=== PATIENT | male | born 1965 | race African-American/Black ===

== ENCOUNTER 2019-01-21 07:35 | Inpatient (IN) | payer OTHER ==
[2019-01-21 08:53] LABS: ADD MAN DIFF? NO
[2019-01-21 08:56] LABS: EOSINOPHILS # 0.2 10^3/ul (0.0-0.5); HEMATOCRIT 41.4 % (42.0-52.0); HEMOGLOBIN 13.6 g/dl (14.0-18.0); LYMPHOCYTES # 1.3 10^3/ul (0.8-2.9); LYMPHOCYTES % 31.3 % (15.0-51.0); MEAN CORPUSCULAR HEMOGLOBIN 26.1 pg (29.0-33.0); MEAN CORPUSCULAR HGB CONC 32.9 g/dl (32.0-37.0); MEAN CORPUSCULAR VOLUME 79.5 fl (82.0-101.0); MEAN PLATELET VOLUME 10.5 fl (7.4-10.4); MONOCYTE # 0.4 10^3/ul (0.3-0.9); MONOCYTES % 10.7 % (0.0-11.0); NEUTROPHIL # 2.1 10^3/ul (1.6-7.5); NEUTROPHILS % 52.8 % (39.0-77.0); PLATELET COUNT 198 10^3/UL (140-415); RED BLOOD COUNT 5.21 10^6/ul (4.70-6.10); RED CELL DISTRIBUTION WIDTH 13.6 % (11.5-14.5)
[2019-01-21 09:20] LABS: PROTIME 12.3 Sec (11.9-14.9)
[2019-01-21 09:21] LABS: PARTIAL THROMBOPLASTIN TIME 32.2 Sec (23.0-35.0)
[2019-01-21 09:37] LABS: ALANINE AMINOTRANSFERASE 41 IU/L (13-69); ALBUMIN 4.4 g/dl (3.3-4.9); ALBUMIN/GLOBULIN RATIO 1.41; ALKALINE PHOSPHATASE 58 IU/L (42-121); ANION GAP 10 (5-13); ASPARTATE AMINO TRANSFERASE 43 IU/L (15-46); BILIRUBIN,INDIRECT 0.8 mg/dl (0-1.1); BILIRUBIN,TOTAL 0.8 mg/dl (0.2-1.3); BLOOD UREA NITROGEN 12 mg/dl (7-20); CALCIUM 9.8 mg/dl (8.4-10.2); CARBON DIOXIDE 30 mmol/L (21-31); CHLORIDE 104 mmol/L (97-110); CREATININE 1.07 mg/dl (0.61-1.24); Estimated GFR > 60 mL/min (>60); GLUCOSE 88 mg/dl (70-220); POTASSIUM 4.2 mmol/L (3.5-5.1); SODIUM 144 mmol/L (135-144); TOTAL PROTEIN 7.5 g/dl (6.1-8.1)
[2019-01-21] MEDS ORDERED: ONDANSETRON 4 MG INJ IV (12:00)
[2019-01-21] MEDS ORDERED: ACETAMINOPHEN 325 MG TAB PO ×2 (12:00→16:00)
[2019-01-21] MEDS ORDERED: HYDROCODONE/APAP (5/325) TAB PO (16:00)
[2019-01-21] MEDS ORDERED: IBUPROFEN 600 MG TAB PO (16:00)
[2019-01-21] MEDS: METHOCARBAMOL 500 MG TAB PO (17:45)
[2019-01-21 18:55] LABS: TROPONIN-I < 0.012 ng/ml (0.000-0.120)
[2019-01-21] MEDS: GABAPENTIN 100 MG CAP PO (21:20)
[2019-01-22] MEDS: METHOCARBAMOL 500 MG TAB PO ×5 (00:38→23:59)
[2019-01-22 01:09] LABS: TROPONIN-I < 0.012 ng/ml (0.000-0.120)
[2019-01-22 06:06] LABS: ADD MAN DIFF? NO
[2019-01-22] MEDS: PANTOPRAZOLE (EC) 40 MG TAB PO (06:09)
[2019-01-22 06:12] LABS: WHITE BLOOD COUNT 4.1 10^3/ul (4.8-10.8)
[2019-01-22 06:12] LABS: EOSINOPHILS # 0.2 10^3/ul (0.0-0.5); EOSINOPHILS % 4.4 % (0.0-7.0); HEMATOCRIT 38.8 % (42.0-52.0); HEMOGLOBIN 13.2 g/dl (14.0-18.0); LYMPHOCYTES # 1.4 10^3/ul (0.8-2.9); LYMPHOCYTES % 35.2 % (15.0-51.0); MEAN CORPUSCULAR HEMOGLOBIN 26.2 pg (29.0-33.0); MONOCYTE # 0.5 10^3/ul (0.3-0.9); MONOCYTES % 12.1 % (0.0-11.0); NEUTROPHIL # 1.9 10^3/ul (1.6-7.5); NEUTROPHILS % 47.1 % (39.0-77.0); PLATELET COUNT 194 10^3/UL (140-415); RED BLOOD COUNT 5.04 10^6/ul (4.70-6.10); RED CELL DISTRIBUTION WIDTH 13.6 % (11.5-14.5)
[2019-01-22 06:48] LABS: ANION GAP 8 (5-13); BLOOD UREA NITROGEN 15 mg/dl (7-20); CALCIUM 9.5 mg/dl (8.4-10.2); CARBON DIOXIDE 28 mmol/L (21-31); CHLORIDE 105 mmol/L (97-110); CREATININE 1.05 mg/dl (0.61-1.24); Estimated GFR > 60 mL/min (>60); GLUCOSE 86 mg/dl (70-220); POTASSIUM 4.2 mmol/L (3.5-5.1); SODIUM 141 mmol/L (135-144)
[2019-01-22 07:06] LABS: CHOL/HDL RATIO 3.4 RATIO; HDL CHOLESTEROL 55 mg/dl (28-71); LDL CHOLESTEROL,CALCULATED 121 mg/dl; TRIGLYCERIDES 73 mg/dl (0-149)
[2019-01-22 07:06] LABS: CHOLESTEROL 191 mg/dl (100-200)
[2019-01-22] MEDS: DOCUSATE SODIUM 100 MG CAP PO ×2 (08:09→20:13)
[2019-01-22] MEDS: GABAPENTIN 100 MG CAP PO ×2 (08:09→20:20)
[2019-01-23 06:05] LABS: ADD MAN DIFF? NO
[2019-01-23] MEDS: PANTOPRAZOLE (EC) 40 MG TAB PO (06:05)
[2019-01-23] MEDS: METHOCARBAMOL 500 MG TAB PO ×3 (06:05→18:16)
[2019-01-23 06:10] LABS: BASOPHILS % 0.8 % (0.0-2.0); EOSINOPHILS # 0.2 10^3/ul (0.0-0.5); EOSINOPHILS % 4.5 % (0.0-7.0); HEMATOCRIT 41.9 % (42.0-52.0); HEMOGLOBIN 14.1 g/dl (14.0-18.0); LYMPHOCYTES # 1.3 10^3/ul (0.8-2.9); LYMPHOCYTES % 32.8 % (15.0-51.0); MEAN CORPUSCULAR HEMOGLOBIN 26.1 pg (29.0-33.0); MEAN CORPUSCULAR HGB CONC 33.7 g/dl (32.0-37.0); MEAN CORPUSCULAR VOLUME 77.4 fl (82.0-101.0); MEAN PLATELET VOLUME 10.9 fl (7.4-10.4); MONOCYTE # 0.4 10^3/ul (0.3-0.9); MONOCYTES % 11.3 % (0.0-11.0); NEUTROPHIL # 1.9 10^3/ul (1.6-7.5); NEUTROPHILS % 50.1 % (39.0-77.0); PLATELET COUNT 196 10^3/UL (140-415); RED BLOOD COUNT 5.41 10^6/ul (4.70-6.10); RED CELL DISTRIBUTION WIDTH 13.3 % (11.5-14.5)
[2019-01-23 06:10] LABS: WHITE BLOOD COUNT 3.8 10^3/ul (4.8-10.8)
[2019-01-23 06:39] LABS: ANION GAP 9 (5-13); BLOOD UREA NITROGEN 15 mg/dl (7-20); CARBON DIOXIDE 28 mmol/L (21-31); CHLORIDE 104 mmol/L (97-110); CREATININE 1.01 mg/dl (0.61-1.24); Estimated GFR > 60 mL/min (>60); GLUCOSE 91 mg/dl (70-220); POTASSIUM 4.1 mmol/L (3.5-5.1); SODIUM 141 mmol/L (135-144)
[2019-01-23] MEDS: GABAPENTIN 100 MG CAP PO ×2 (08:35→20:30)
[2019-01-23] MEDS: DOCUSATE SODIUM 100 MG CAP PO ×2 (08:35→21:00)
[2019-01-24] MEDS: METHOCARBAMOL 500 MG TAB PO ×4 (00:50→17:43)
[2019-01-24] MEDS: PANTOPRAZOLE (EC) 40 MG TAB PO (05:32)
[2019-01-24 05:39] LABS: ADD MAN DIFF? NO
[2019-01-24 05:45] LABS: BASOPHILS % 0.8 % (0.0-2.0); EOSINOPHILS # 0.2 10^3/ul (0.0-0.5); EOSINOPHILS % 3.9 % (0.0-7.0); HEMATOCRIT 40.7 % (42.0-52.0); LYMPHOCYTES # 1.8 10^3/ul (0.8-2.9); LYMPHOCYTES % 36.3 % (15.0-51.0); MEAN CORPUSCULAR HEMOGLOBIN 26.6 pg (29.0-33.0); MEAN CORPUSCULAR HGB CONC 34.4 g/dl (32.0-37.0); MEAN CORPUSCULAR VOLUME 77.2 fl (82.0-101.0); MEAN PLATELET VOLUME 10.5 fl (7.4-10.4); MONOCYTE # 0.5 10^3/ul (0.3-0.9); MONOCYTES % 10.6 % (0.0-11.0); NEUTROPHIL # 2.4 10^3/ul (1.6-7.5); PLATELET COUNT 196 10^3/UL (140-415); RED BLOOD COUNT 5.27 10^6/ul (4.70-6.10); RED CELL DISTRIBUTION WIDTH 13.5 % (11.5-14.5)
[2019-01-24 05:45] LABS: WHITE BLOOD COUNT 4.9 10^3/ul (4.8-10.8)
[2019-01-24 06:21] LABS: ANION GAP 8 (5-13); BLOOD UREA NITROGEN 16 mg/dl (7-20); CALCIUM 9.5 mg/dl (8.4-10.2); CARBON DIOXIDE 27 mmol/L (21-31); CHLORIDE 105 mmol/L (97-110); CREATININE 1.04 mg/dl (0.61-1.24); Estimated GFR > 60 mL/min (>60); GLUCOSE 83 mg/dl (70-220); POTASSIUM 3.9 mmol/L (3.5-5.1); SODIUM 140 mmol/L (135-144)
[2019-01-24] MEDS: DOCUSATE SODIUM 100 MG CAP PO ×2 (08:39→20:14)
[2019-01-24] MEDS: GABAPENTIN 100 MG CAP PO ×2 (08:39→20:14)
[2019-01-25] MEDS: PANTOPRAZOLE (EC) 40 MG TAB PO (05:13)
[2019-01-25] MEDS: METHOCARBAMOL 500 MG TAB PO ×4 (05:13→17:50)
[2019-01-25] MEDS: DOCUSATE SODIUM 100 MG CAP PO ×2 (09:00→20:46)
[2019-01-25] MEDS: GABAPENTIN 100 MG CAP PO (09:23)
[2019-01-25 13:33] LABS: ADD MAN DIFF? NO
[2019-01-25 13:37] LABS: BASOPHILS % 0.6 % (0.0-2.0); EOSINOPHILS # 0.2 10^3/ul (0.0-0.5); EOSINOPHILS % 4.8 % (0.0-7.0); HEMATOCRIT 43.6 % (42.0-52.0); HEMOGLOBIN 14.6 g/dl (14.0-18.0); LYMPHOCYTES # 1.5 10^3/ul (0.8-2.9); LYMPHOCYTES % 30.2 % (15.0-51.0); MEAN CORPUSCULAR HEMOGLOBIN 26.1 pg (29.0-33.0); MEAN CORPUSCULAR HGB CONC 33.5 g/dl (32.0-37.0); MEAN PLATELET VOLUME 10.2 fl (7.4-10.4); MONOCYTE # 0.5 10^3/ul (0.3-0.9); MONOCYTES % 10.8 % (0.0-11.0); NEUTROPHIL # 2.7 10^3/ul (1.6-7.5); NEUTROPHILS % 53.2 % (39.0-77.0); PLATELET COUNT 213 10^3/UL (140-415); RED BLOOD COUNT 5.59 10^6/ul (4.70-6.10); RED CELL DISTRIBUTION WIDTH 13.5 % (11.5-14.5)
[2019-01-25 13:58] LABS: ANION GAP 11 (5-13); BLOOD UREA NITROGEN 16 mg/dl (7-20); CALCIUM 9.8 mg/dl (8.4-10.2); CARBON DIOXIDE 24 mmol/L (21-31); CHLORIDE 105 mmol/L (97-110); CREATININE 1.02 mg/dl (0.61-1.24); Estimated GFR > 60 mL/min (>60); GLUCOSE 108 mg/dl (70-220); POTASSIUM 4.2 mmol/L (3.5-5.1); SODIUM 140 mmol/L (135-144)
[2019-01-25] MEDS: KETOROLAC 30 MG INJ IV (16:05)
[2019-01-25] MEDS: GABAPENTIN 300 MG CAP PO ×2 (16:05→20:44)
[2019-01-26] MEDS: METHOCARBAMOL 500 MG TAB PO ×5 (00:18→23:55)
[2019-01-26 05:06] LABS: ADD MAN DIFF? NO
[2019-01-26 05:10] LABS: WHITE BLOOD COUNT 4.3 10^3/ul (4.8-10.8)
[2019-01-26 05:10] LABS: BASOPHILS % 0.9 % (0.0-2.0); EOSINOPHILS # 0.2 10^3/ul (0.0-0.5); EOSINOPHILS % 5.1 % (0.0-7.0); HEMATOCRIT 39.2 % (42.0-52.0); HEMOGLOBIN 12.9 g/dl (14.0-18.0); LYMPHOCYTES # 1.6 10^3/ul (0.8-2.9); LYMPHOCYTES % 37.8 % (15.0-51.0); MEAN CORPUSCULAR HEMOGLOBIN 25.7 pg (29.0-33.0); MEAN CORPUSCULAR HGB CONC 32.9 g/dl (32.0-37.0); MEAN CORPUSCULAR VOLUME 78.2 fl (82.0-101.0); MEAN PLATELET VOLUME 10.5 fl (7.4-10.4); MONOCYTE # 0.5 10^3/ul (0.3-0.9); MONOCYTES % 10.4 % (0.0-11.0); NEUTROPHIL # 1.9 10^3/ul (1.6-7.5); NEUTROPHILS % 45.1 % (39.0-77.0); PLATELET COUNT 187 10^3/UL (140-415); RED BLOOD COUNT 5.01 10^6/ul (4.70-6.10); RED CELL DISTRIBUTION WIDTH 13.6 % (11.5-14.5)
[2019-01-26 05:26] LABS: ANION GAP 8 (5-13); BLOOD UREA NITROGEN 22 mg/dl (7-20); CALCIUM 9.4 mg/dl (8.4-10.2); CARBON DIOXIDE 27 mmol/L (21-31); CHLORIDE 106 mmol/L (97-110); CREATININE 1.09 mg/dl (0.61-1.24); Estimated GFR > 60 mL/min (>60); GLUCOSE 81 mg/dl (70-220); POTASSIUM 4.1 mmol/L (3.5-5.1); SODIUM 141 mmol/L (135-144)
[2019-01-26] MEDS: PANTOPRAZOLE (EC) 40 MG TAB PO (05:49)
[2019-01-26] MEDS: GABAPENTIN 300 MG CAP PO ×3 (08:28→20:45)
[2019-01-26] MEDS: DOCUSATE SODIUM 100 MG CAP PO ×2 (08:36→21:00)
[2019-01-26] MEDS ORDERED: NAPROXEN 250 MG TAB PO (12:30)
[2019-01-26] MEDS: KETOROLAC 30 MG INJ IV (13:15)
[2019-01-26] MEDS: NAPROXEN 500 MG TAB PO (17:50)
[2019-01-26] MEDS: SOD CHLORIDE 0.9% 100 ML (19:15)
[2019-01-26] MEDS: IOHEXOL 100 ML (19:15)
[2019-01-27] MEDS: PANTOPRAZOLE (EC) 40 MG TAB PO (06:16)
[2019-01-27] MEDS: METHOCARBAMOL 500 MG TAB PO ×2 (06:16→12:29)
[2019-01-27] MEDS: NAPROXEN 500 MG TAB PO ×2 (08:03→12:29)
[2019-01-27] MEDS: GABAPENTIN 300 MG CAP PO ×2 (08:03→12:29)
[2019-01-27] MEDS: DOCUSATE SODIUM 100 MG CAP PO (09:00)
== END 2019-01-27 15:30 | disposition home or self-care (01) | DRG 552 ==
LOC: FTE 07:35 → PP2 11:41
DX: M51.16 Intervertebral disc disorders with radiculopathy, lumbar region (principal); M48.061 Spinal stenosis, lumbar region without neurogenic claudication; R00.1 Bradycardia, unspecified; I10 Essential (primary) hypertension; R94.31 Abnormal electrocardiogram [ECG] [EKG]; G89.29 Other chronic pain; E78.5 Hyperlipidemia, unspecified
CPT/HCPCS: 36415; 71046; 72128; 72141; 72148; 73562; 75635; 80048; 80053; 80061; 84443; 84484; 85025; 85610; 85730; 93005; 93306; 99285-25